=== PATIENT | male | born 1950 | race Caucasian/White ===

== ENCOUNTER 2018-05-24 12:32 | Inpatient (IN) | payer MEDICARE, OTHER ==
[~2018-05-24] VITALS: Ht 180.3 cm; Wt 136.1 kg
--- NOTE | ~2018-05-24 | DS ---
[facility] [address] [place], [place] [address] Draft ADMISSION DATE: 06/08/2018 DISCHARGE DATE: 06/13/2018 FINAL DIAGNOSES: 1. Osteoarthritis right knee, severe. 2. Diabetes mellitus. HISTORY OF PRESENT ILLNESS: The patient a 67-year-old white male, with end-stage osteoarthritis in the right knee. He had reached the point where conservative management no longer gave him any symptomatic relief and he presented for elective total knee arthroplasty. HOSPITAL COURSE: The patient was admitted on June 08, 2018, via Day Surgery. He was taken to the operating room, where he underwent knee replacement with an Attune PS knee. Postoperatively, he has done well. He has been a little slower than average in physical therapy due to his general deconditioning and his BMI. However, he passed his physical therapy protocol at this time and is independently ambulatory with a walker. We are going to discharge him home on Xarelto for DVT prophylaxis and continue to alternate Dilaudid and OxyIR as needed for pain. He can be active as possible. We will arrange for outpatient physical therapy and will have him follow up with us in 6 weeks. MD SUSANA Valenzuela/SHY /[id number] Copies: ~ PATIENT NAME: KAMALJIT CORTEZ DISCHARGE SUMMARY DATE OF : 46 REPORT #: [id number] PHYSICIAN: CORI ROSA MD PCP: ASHER GIBBS DO REPORT IS CONFIDENTIAL AND NOT TO BE RELEASED WITHOUT AUTHORIZATION
--- OUTSIDE RECORDS SUMMARY | ~2018-05-24 | XMS | Clinical Summary ---
Demographics + + + | Address | [address] | | | [place] [address] | + + + | Home Phone | | + + + | Preferred Language | Unknown | + + + | Marital Status | | + + + | Methodist Affiliation | 1073 | + + + | Race | Unknown | + + + | Ethnic Group | Unknown | + + + Author + + + | Author | [facility] | | | and [place] | + + + | Organization | [facility] | | | and [place] | + + + | Address | Unknown | + + + | Phone | Unavailable | + + + Support + + +---------+ + | Name | Relationship | Address | Phone | + + +---------+ + | Irish Smith | ECON | Unknown | | + + +---------+ + Care Team Providers + +------+ + | Care Driver Name | Role | Phone | + +------+ + | Mart Greer DO | PP | | + +------+ + Allergies + + + + + + | Active Allergy | Reactions | Severity | Noted | Comments | | | | | Date | | + + + + + + | Adhesive & Tape | Other (See Comments) | Low | | Blisters | + + + + + + | Bacitracin-Neomycin- | Rash | Low | 06/17/20 | | | Polymyxin | | | 17 | | + + + + + + | Penicillins | Rash | Low | | | + + + + + + Current Medications + + +-------+---------+------+------+-------+ | Prescription | Sig. | Disp. | Refills | Star | End | Statu | | | | | | t | Date | s | | | | | | Date | | | + + +-------+---------+------+------+-------+ | pantoprazole | Take 40 mg by mouth | | | | | Activ | | (PROTONIX) 40 mg | 2 times daily | | | | | e | | tablet | (before meals). | | | | | | + + +-------+---------+------+------+-------+ | traZODone | Take 50 mg by mouth | | | | | Activ | | (DESYREL) 50 mg | nightly. | | | | | e | | tablet | | | | | | | + + +-------+---------+------+------+-------+ | tamsulosin | Take 0.4 mg by mouth | | | | | Activ | | (FLOMAX) 0.4 mg CAPS | daily (after | | | | | e | | | breakfast). | | | | | | + + +-------+---------+------+------+-------+ | | TAKE 1 TABLET BY | | 11 | 08/3 | | Activ | | losartan-hydrochloro | MOUTH ONCE DAILY | | | 0/20 | | e | | thiazide (HYZAAR) | | | | 17 | | | | 100-25 MG per tablet | | | | | | | + + +-------+---------+------+------+-------+ | metFORMIN | Take one tablet | | 12 | 09/1 | | Activ | | (GLUCOPHAGE-XR) 500 | twice daily | | | 0/20 | | e | | mg 24 hr tablet | | | | 17 | | | + + +-------+---------+------+------+-------+ | montelukast | Take one tablet in | | 11 | 08/3 | | Activ | | (SINGULAIR) 10 mg | the evening | | | 0/20 | | e | | tablet | | | | 17 | | | + + +-------+---------+------+------+-------+ | pravastatin | Take one tablet | | 11 | 08/3 | | Activ | | (PRAVACHOL) 20 mg | daily | | | 0/20 | | e | | tablet | | | | 17 | | | + + +-------+---------+------+------+-------+ | acetaminophen | Take 1,000 mg by | | | | | Activ | | (TYLENOL) 500 mg | mouth nightly. | | | | | e | | tablet | | | | | | | + + +-------+---------+------+------+-------+ | loperamide | Take 2-4 mg by mouth | | | | | Activ | | (IMODIUM) 2 mg | as needed for | | | | | e | | capsule | Diarrhea. | | | | | | + + +-------+---------+------+------+-------+ | Multiple | Take 1 tablet by | | | | | Activ | | Vitamins-Minerals | mouth Daily. | | | | | e | | (CENTRUM ULTRA MENS) | | | | | | | | TABS | | | | | | | + + +-------+---------+------+------+-------+ Active Problems + + + | Problem | Noted Date | + + + | Cough | 06/29/2017 | + + + | Gastroesophageal reflux disease | 06/29/2017 | + + + | OBSTRUCTIVE SLEEP APNEA | 11/05/2010 | + + + Immunizations + + + + | Name | Dates Previously Given | Next Due | + + + + | INFLUENZA 63 Y OR >, | 07/22/2017, 07/01/2016, 06/19/2015 | | | TRIVALENT HIGH-DOSE | | | + + + + | PNEUMOCOCCAL | 11/27/2016 | | | CONJUGATE 13-VALENT | | | | (PCV13) | | | + + + + | PNEUMOCOCCAL | 07/29/2015 | | | POLYSACCHARIDE | | | | 23-VALENT (PPSV23) | | | + + + + | TDAP, (ADOL/ADULT) | 06/19/2015 | | + + + + | ZOSTER, 1 DOSE | 05/26/2010 | | | (ADULT) | | | + + + + Family History + + +------+ + | Medical History | Relation | Name | Comments | + + +------+ + | Diabetes | Brother | | | + + +------+ + | Asthma | Father | | | + + +------+ + | Coronary artery | Father | | | | disease | | | | + + +------+ + | Emphysema | Father | | | + + +------+ + | Breast cancer | Mother | | | + + +------+ + | Other (see comment) | Sister | | Diverticulitis | + + +------+ + + +------+ + + | Relation | Name | Status | Comments | + +------+ + + | Brother | | | | + +------+ + + | Father | | | | + +------+ + + | Mother | | | | + +------+ + + | Sister | | | | + +------+ + + Social History + +-------+ +--------+------+ | Tobacco Use | Types | Packs/Day | Years | Date | | | | | Used | | + +-------+ +--------+------+ | Never Smoker | | | | | + +-------+ +--------+------+ + +---+---+---+ | Smokeless Tobacco: | | | | | Never Used | | | | + +---+---+---+ + + | Tobacco Cessation: Counseling Given: No | + + + + +---------+ + | Alcohol Use | Drinks/We | oz/Week | Comments | | | ek | | | + + +---------+ + | Yes | | | Once every 3-4 months | + + +---------+ + + + + | Sex Assigned at | Date Recorded | | | | + + + | Not on file | | + + + Last Filed Vital Signs + + + + | Vital Sign | Reading | Time Taken | + + + + | Blood Pressure | 150/80 | 07/28/2017 1059 PDT | + + + + | Pulse | 72 | 07/28/20171058 PDT | + + + + | Temperature | 37.6 C (99.7 F) | 06/18/20175 PDT | + + + + | Respiratory Rate | 18 | 07/28/20171058 PDT | + + + + | Oxygen Saturation | 93% | 07/28/20171058 PDT | + + + + | Inhaled Oxygen | - | - | | Concentration | | | + + + + | Weight | 145.9 kg (321 lb | 07/28/20171058 PDT | | | 10.4 oz) | | + + + + | Height | 181.6 cm (5' 11.5") | 07/22/2017 0912 PDT | + + + + | Body Mass Index | 44.24 | 07/28/2017 1059 PDT | + + + + Plan of Treatment + + + + + | Health Maintenance | Due Date | Last Done | Comments | + + + + + | Hepatitis C | | | | | Screening | 9 | | | + + + + + | Vaccine: Influenza | | 07/22/2017, 07/01/2016, | | | (#1) | 8 | 06/19/2015 | | + + + + + | Vaccine: | | 06/19/2015 | | | Dtap/Tdap/Td (2 - | 5 | | | | Td) | | | | + + + + + | Colorectal Cancer | | 06/18/2017 | | | Screening | 7 | | | | (Colonoscopy) | | | | + + + + + | Vaccine: | Completed | 11/27/2016, 07/29/2015 | | | Pneumococcal 65+ | | | | | Low/Medium Risk | | | | + + + + + Results Not on filefrom Last 3 Months Insurance + +--------+ +--------+ +---------+ | Payer | Benefi | Subscriber | Type | Phone | Address | | | t Plan | ID | | | | | | / | | | | | | | Group | | | | | + +--------+ +--------+ +---------+ | MEDICARE | MEDICA | [id number] | Medica | [phone] | | | | RE | | re | [phone] | | | | PART A | | | | | | | AND B | | | | | + +--------+ +--------+ +---------+ | MEDICARE SUPPLEMENT | MEDICA | [id number] | Indemn | [phone] | | | OTHER | RE | | ity | [phone] | | | | SUPPLE | | | | | | | MENT | | | | | | | OTHER | | | | | + +--------+ +--------+ +---------+ + +--------+ +--------+ + + | Guarantor Name | Accoun | Relation to | Date | Phone | Billing Address | | | t Type | Patient | of | | | | | | | | | | + +--------+ +--------+ + + | KAMALJIT CORTEZ | Person | Self [birth year] Home: | [address] | | | al/Fam | | 1951 | [phone] | [place] | | | [place] | | [phone] | [phone] | + +--------+ +--------+ + +
[~2018-05-24 12:32] MED LIST: HYDROCODON-ACE1 EA11 PO; KEFLEX500 MG PO; LOSARTAN-HCTZ1 EAC1 PO; MELOXICAM15 MG PO; METFORMIN HCL500 M1 PO; MONTELUKAST SOD10 MG PO; PANTOPRAZOLE SO40 MG PO; PRAVASTATIN SOD20 MG PO; TAMSULOSIN HCL0.4 MG PO; TRAZODONE HCL50 MG PO; VERAPAMIL ER120 M1 PO
[2018-06-01] MEDS ORDERED: GLIPIZIDE10 MG PO (13:12)
[2018-06-01] MEDS ORDERED: JANUVIA50 MG PO (13:12)
[2018-06-08] MEDS ORDERED: DAILY MULTIPLE1 EACH PO (07:18)
[2018-06-08] MEDS ORDERED: ACETAMINOPHEN500 MG PO (07:19)
[2018-06-08] MEDS ORDERED: GLIPIZIDE ER10 MG PO (14:58)
--- NOTE | 2018-06-09 09:23 | OR ---
[facility] [address] [place], [place] [address] Signed DATE OF OPERATION: 06/08/2018 SURGEON: Cori Rosa MD PREOPERATIVE DIAGNOSIS: End-stage osteoarthritis, right knee. POSTOPERATIVE DIAGNOSIS: End-stage osteoarthritis, right knee. PROCEDURES: Right total knee arthroplasty. Using an Attune PS knee. IMPLANTS: Size 8 PS femur, size 8 fixed bearing tibial tray, 5 mm thick size 8 PS poly, and a 38 mm all-poly patellar button. ANESTHESIA: Spinal with sedation. SPECIMENS AND COMPLICATIONS: There were no specimens or complications. TOURNIQUET TIME: About 85 minutes. WHAT WAS DONE: The patient was taken to the operating room. After anesthesia was induced, the right lower extremity was positioned, prepped and draped in a routine sterile fashion. The leg was exsanguinated with an Esmarch bandage. Pneumatic tourniquet about the thigh was inflated to 300 mmHg pressure. A straight anterior approach was made at the knee through skin and subcutaneous tissue. A small medial flap was created. An anteromedial arthrotomy performed. The patella was turned on edge and about 11 mm trimmed off the posterior aspect. We then placed the lollipop for the 38 mm all-poly patella on the back of the cut surface and drilled the holes for the 38 mm all-poly patella. After we snap-fit the trial and remeasured, we had restored the 24 mm height of the patella. The trial was removed and the patella was slipped into the lateral recess. The knee was placed in a semi flexed position. Using the Nextlanding navigation system, we digitized the distal femur and then did a distal femoral resection at neutral varus valgus and about 3 degrees of flexion with removing approximately 11 mm off the more worn i.e. the medial Electronically Signed By: CORI ROSA MD 06/09/18 0923 PATIENT NAME: KAMALJIT CORTEZ OPERATIVE REPORT DATE OF : 46 REPORT #: [id number] PHYSICIAN: CORI ROSA MD PCP: ASHER GIBBS DO REPORT IS CONFIDENTIAL AND NOT TO BE RELEASED WITHOUT AUTHORIZATION [facility] [address] [place], [place] [address] Signed side. The femoral wafers were then removed. We transitioned the Nextlanding navigation system of the proximal tibia and again following the prompts digitized the proximal tibia. We then resected the tibia in neutral varus valgus taking about 4 mm off the medial side in about 3 degrees of posterior slope per the Attune surgical protocol. The tibial wafer run into the medial and lateral meniscus. ACL and PCL were then removed. We checked the extension block and we had a good extension with a stable construct. We then placed the sizer on the distal femur and it sized to a size 8. We secured the 4-in-1 size 8 cutting block on the distal femur in 3 degrees of external rotation. Anterior, posterior, and chamfer cuts were made. We then placed the size 8 notch cutting block on the distal femur and cut out the notch. Lamina spreaders were then placed in the knee and removed the small remnants remaining of the mediolateral meniscus, ACL, and PCL. We then placed the femoral trial on the distal femur. I drilled the lug holes. We placed a size 8 tibial trial base plate on the tibia with a 5 mm poly. Again, we had full extension with excellent stability. We marked the rotational alignment. We then prepared the tibia with a standard reamer and broach. The knee was copiously irrigated and dried. The final components were then cemented into place. Marginal cement was sought and removed. Once the cement had completely cured, we removed the trial 5 mm poly and snap fit the real [address]. Again, we had full extension with good varus valgus balance and flexion extension in mid range. The knee was copiously irrigated and closed in standard fashion. A sterile dressing was applied. The patient was awakened and taken to the recovery room in stable condition. Counts were correct and antibiotic protocols were followed. Cori Rosa MD WFB/MODL /[id number] Copies: ~ Electronically Signed By: CORI ROSA MD 06/09/18 0923 PATIENT NAME: KAMALJIT CORTEZ OPERATIVE REPORT DATE OF : 46 REPORT #: [id number] PHYSICIAN: CORI ROSA MD PCP: ASHER GIBBS DO REPORT IS CONFIDENTIAL AND NOT TO BE RELEASED WITHOUT AUTHORIZATION
[2018-06-13] MEDS ORDERED: XARELTO10 MG PO (13:10)
[2018-06-13] MEDS ORDERED: DILAUDID4 MG PO (13:12)
[2018-06-13] MEDS ORDERED: OXYCODONE HCL5 MG PO (13:22)
== END 2018-06-13 14:15 | disposition home or self-care (01) | DRG 470 ==
LOC: DSVR 06-08 06:55 → MS 06-08 06:55
PROVIDERS: ADMIT Orthopaedic Surgery
PROC: 0SRC0J9 Replacement of Right Knee Joint with Synthetic Substitute, Cemented, Open Approach (ICD-10-PCS; principal; 2018-06-08 08:45)
DX: M17.11 Unilateral primary osteoarthritis, right knee (principal); Z68.41 Body mass index [BMI] 40.0-44.9, adult; I10 Essential (primary) hypertension; K21.9 Gastro-esophageal reflux disease without esophagitis; F32.9 Major depressive disorder, single episode, unspecified; N40.0 Benign prostatic hyperplasia without lower urinary tract symptoms; E11.9 Type 2 diabetes mellitus without complications; Z79.4 Long term (current) use of insulin; G47.33 Obstructive sleep apnea (adult) (pediatric); G47.00 Insomnia, unspecified; E66.01 Morbid (severe) obesity due to excess calories; E78.5 Hyperlipidemia, unspecified; J45.30 Mild persistent asthma, uncomplicated
CPT/HCPCS: 36415; 51702; 51798; 73560; 80048; 85025; 94762; 97110; 97116; 97161; C1713; C1776; G8978; G8979; J0690; J1815; J1885; J2250; J2274; J2300; J2405; J2704; J2765; J3010; J3370; J7120

== ENCOUNTER 2022-03-17 10:50 | Emergency (ER) | payer MEDICARE, OTHER ==
[~2022-03-17] VITALS: Ht 180.3 cm; Wt 152.4 kg
[~2022-03-17 10:50] MED LIST changes: +ACETAMINOPHEN500 MG PO; +DAILY MULTIPLE1 EACH PO; +DILAUDID4 MG PO; +GLIPIZIDE ER10 MG PO; +GLIPIZIDE10 MG PO; +JANUVIA50 MG PO; +OXYCODONE HCL5 MG PO; +XARELTO10 MG PO
--- OUTSIDE RECORDS SUMMARY | 2022-03-17 10:52 | XMS ---
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 Ady has no Care Guidelines for this patient. Carmen VISIT COUNT (12 MO.) 1 [place] TOTAL 1 NOTE: Visits indicate total known visits. ED/UCC VISIT TRACKING (12 MO.) 03/17/2022 10:51 [place] TYPE: Emergency COMPLAINT: - FLU INFUSION INPATIENT VISIT TRACKING (12 MO.) No inpatient visits to display in this time frame [email or web address]
[2022-03-17] MEDS ORDERED: GABAPENTIN100 MG PO (11:06)
[2022-03-17] MEDS ORDERED: OXYBUTYNIN CHLOR5 M1 PO (11:06)
[2022-03-17] MEDS ORDERED: CHLORTHALIDONE25 MG PO (11:06)
[2022-03-17] MEDS ORDERED: LOSARTAN POTAS100 MG PO (11:06)
[2022-03-17] MEDS ORDERED: PIOGLITAZONE HC15 MG PO (11:17)
[2022-03-17] MEDS ORDERED: DULOXETINE HCL60 MG PO (11:17)
[2022-03-17] MEDS ORDERED: FARXIGA10 MG PO (11:17)
== END 2022-03-17 12:30 | disposition home or self-care (01) ==
LOC: ED 10:50
DX: U07.1 COVID-19 (principal); J45.909 Unspecified asthma, uncomplicated; I10 Essential (primary) hypertension; E78.5 Hyperlipidemia, unspecified; E11.9 Type 2 diabetes mellitus without complications; Z88.8 Allergy status to other drugs, medicaments and biological substances; Z91.048 Other nonmedicinal substance allergy status; Z79.899 Other long term (current) drug therapy
CPT/HCPCS: 96374; 99283-25

== ENCOUNTER 2022-06-23 05:35 | Day surgery (SDC) | payer MEDICARE, OTHER ==
[~2022-06-23] VITALS: Ht 180.3 cm; Wt 141.0 kg
[~2022-06-23 05:35] MED LIST changes: +ALLEGRA ALLERG180 MG PO; +ARNUITY ELLIP100 MCG IH; +BENADRYL25 MG PO; +CHILDREN S NS; +CHLORTHALIDONE25 MG PO; +DULOXETINE HCL60 MG PO; +FARXIGA10 MG PO; +GABAPENTIN100 MG PO; +LOSARTAN POTAS100 MG PO; +LOSARTAN-HCTZ1 EAC2 PO; +NOVOLIN 70100 UNIT/1; +OXYBUTYNIN CHLOR5 M1 PO; +PIOGLITAZONE HC15 MG PO; +PROAIR HFA8.5 GM INH; +VENTOLIN HFA18 GM INH; +[UNRECOGNIZED DRUG - OTHER] NS
--- NOTE | 2022-06-23 05:40 | NUR ---
PT AMBULATED IN TO DAY SURGERY WITH LEG SUPPORTS AND CANES. PT DRESSES SELF INTO HOSPITAL GOWN. PT REPORTS 1/10 BACK PAIN THAT IS "MY NORMAL." INTAKE ASSESSMENT DONE. IV STARTED PER PROTOCOL. PT VERBALIZES UNDERSTANDING OF PLAN OF CARE AND STATES HIS QUESTIONS HAVE BEEN ANSWERED. EKG DONE BY RT RAMON, PER ORDER. NO ADDITIONAL NEEDS AT THIS TIME. CALL LIGHT WITHIN REACH. BED RAILS UP.
--- NOTE | 2022-06-23 06:30 | NUR ---
TIFFANIE MARI, TO BEDSIDE TO DISCUSS PLAN OF CARE WITH PT. PT VERBALIZES UNDERSTANDING AND STATES HIS QUESTIONS HAVE BEEN ANSWERED. NO ADDITIONAL NEEDS AT THIS TIME. CALL LIGHT WITHIN REACH. BED RAILS UP.
--- NOTE | 2022-06-23 07:26 | NUR ---
CIRCULAR SKIN RASH NOTED TO PTS RIGHT VELA WITH INTAKE ASSESSMENT. DR. SANDS AND ASHLEY, PHOTOGRAPH DEVELOPER, UPDATED REGARDING RASH, NO NEW ORDERS AT THIS TIME. DR SANDS TO BEDSIDE TO REVIEW PLAN OF CARE WITH PT. PT VERBALIZES UNDERSTANDING AND STATES HIS QUESTIONS HAVE BEEN ANSWERED. ASHLEY PHOTOGRAPH DEVELOPER, TO BEDSIDE TO TAKE PT TO OR. REPORT GIVEN TO ASHLEY. NO ADDITIONAL NEEDS, PT TO OR.
--- NOTE | 2022-06-23 09:42 | NUR ---
06/23/22 0942 Marjan Shi 0927 PT ARRIVED IN PACU NON RESPONSIVE TO NOXIOUS STIMULI WITH OPA IN PLACE. 0930 BLOOD SUGAR 180. ANESTHESIA AWARE. 0940 NO CHANGE IN PT STATUS FROM ARRIVAL.
--- NOTE | 2022-06-23 10:04 | NUR ---
PT ARRIVED FROM PACU. PT ORIENTED TO ALL BUT DROWSY. PT DENIES PAIN OR NAUSEA. STATING "I DONT FEEL MUCH OF ANYTHING RIGHT NOW." PT TOLERATING ROOM AIR WIHT OXGYEN SATURATIONS 96-99%. SMALL AMOUNT OF RED DRANAGE NOTED ON ABD PAD OVER PENIS. INCISION C/D/I. SCD'S IN PLACE. NO ADDITIONAL NEEDS AT THIS TIME. PT ENCOURAGED TO REST. CALL LIGHT WITHIN REACH. BED RAILS UP.
[2022-06-23] MEDS ORDERED: OXYCODONE HCL5 MG PO (10:20)
[2022-06-23] MEDS ORDERED: CEPHALEXIN500 M1 PO (10:21)
--- NOTE | 2022-06-23 10:30 | NUR ---
PT CALL LIGHT ON. PT REPORTS HE NEEDS TO VOID. PT UP TO SIT ON EDGE OF BED. PT REPORS MILD DIZZINESS. URINAL PROVIDED. PT ABLE TO VOID 50ML, CONCENTRATED URINE. 1 PERSON ASSIST BACK TO BED. PT CONTINUES TO DENY PAIN AND NAUSEA. NO ADDITIONAL REQUESTS OR COMPLAINTS. CALL LIGHT WITHIN REACH. BED RAILS UP.
--- NOTE | 2022-06-23 11:00 | NUR ---
PT CALL LIGHT ON. PT REPORTS NEED TO VOID. PT UP TO STAND AND IS ABLE TO VOID 600ML IN URINAL. AMRIO CARE DONE. DEPENDS CHANGED. ABD PAD REMAINS IN PLACE WITH SMALL AMOUNT OF RED DRAINAGE NOTED ON MARIO PAD. PT CONTINUES TO DENY PAIN AND NAUSEA. PT TOLERATING PO FOOD AND FLUIDS. PT REPORS HE IS READY TO GO HOME. 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
--- NOTE | 2022-06-23 11:16 | NUR ---
PT READY FOR DISCHAGE. PT DRESSES SELF WITH 1 PERSON ASSIT FOR SHOES. PT CONTINUES TO DENY PAIN AND NAUSEA. DISCHRAGE INSTRUCTIONS REVIEWED WITH PT. PT VERBALIZES UNDERSTANDING OF INSTRUCTIONS, MEDICATIONS, AND FOLLOW UP. PT TRANSFERS SELF TO WHEELCHAIR. IV DC'D PER PROTOCOL, TIP INTACT, GAUZE AND COBAN APPLIED. PT WHEELED FROM DAY SURGERY TO MEET FRIEND, RORY AT FRONT OF HOSPITAL.
--- NOTE | 2022-06-23 18:12 | OR ---
[facility] [address] [place] [place] [address] Signed DATE OF OPERATION: 06/23/2022 SURGEON: Jodi Sands MD PREOPERATIVE DIAGNOSIS: Phimosis. POSTOPERATIVE DIAGNOSIS: Phimosis. PROCEDURE: Elective circumcision. ANESTHESIA: General and 20 mL of 0.25% Marcaine plain. ESTIMATED BLOOD LOSS: 15 mL. COMPLICATIONS: None. SPECIMENS: Foreskin sent to Pathology for evaluation. COMPLICATIONS: None. INDICATIONS FOR PROCEDURE: Mr. Cortez is a very pleasant 71-year-old gentleman, who recently underwent diagnostic cystoscopy for an unrelated complaint. At the time of his physical exam, he was noted to have uncomplicated phimosis. At the time of his examination, he requested elective circumcision. After discussion of the risks and benefits of the procedure, the patient elected to proceed and presents today to undergo the aforementioned procedure. FINDINGS: 1. 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 The testicles are descended bilaterally and are without any intratesticular masses. With a good deal of manipulation, we are able to retract the foreskin. The glans penis appears normal and has no adhesions or any other abnormalities present. Electronically Signed By: JODI SANDS MD 06/23/221811 PATIENT NAME: KAMALJIT CORTEZ OPERATIVE REPORT DATE OF : 46 REPORT #: [id number] PHYSICIAN: JODI SANDS MD PCP: ASHER GIBBS DO REPORT IS CONFIDENTIAL AND NOT TO BE RELEASED WITHOUT AUTHORIZATION [facility] [address] [place], [place] [address] Signed 2. The patient's foreskin was excised in the routine fashion using a 15 blade with needlepoint electrocautery. The frenular attachment remains intact. The foreskin will be sent to Pathology for evaluation. DESCRIPTION OF PROCEDURE: After informed consent was obtained, the patient was taken back to the operating room. He was transferred from the [facility] to the operating room table, where general anesthesia was induced. He was placed in the supine position. His genitalia were prepped and draped in a standard sterile fashion. The foreskin was dilated using hemostats and we were able to retract the foreskin and properly prepped the glans penis with Betadine. I then placed a 1-0 silk stay suture into the glans penis to help with manipulation of the phallus. I used a marker to shelley both the outer foreskin and the inner portion of the foreskin. With the foreskin completely protracted, I made an incision using a 15 blade circumferentially in the distal prepuce. This was dissected down very gently using electrocautery. I then retracted the foreskin and made an appropriate shelley about 1 cm inferior to the coronal sulcus. I also gave additional attention and created a v flap on the ventral surface of the penis. This was also incised circumferentially using a 15 blade and then dissected down using a needlepoint electrocautery. Once both ends of the foreskin were delineated, I then used a pair of hemostats to little the proximal portion of the foreskin, but this was completely excised using needle point electrocautery. The foreskin was then removed from the operative table and sent to Pathology for evaluation. The penis was then irrigated with sterile saline solution and hemostasis was achieved and maintained using the bipolar electrocautery. I then reapproximated the edges of the remaining portion of the foreskin. I used 3-0 Vicryl at the 12, 3, 6, and 9 o'clock positions. A simple interrupted suture was placed in this area and used as a stay suture. The remainder of the foreskin was then reapproximated using combination of horizontal mattress suture placement along with a running suture near the ventral portion of the phallus. The entire incision was reapproximated without issue again using 3-0 Vicryl. Again, we again thoroughly irrigated the incision and look for any additional areas of hemorrhage. Bacitracin was then applied circumferentially to the subcoronal incision. The area was then cleaned and dried and an ABD dressing was placed along with a scrotal support. The procedure was then terminated. The patient tolerated the procedure well without any complication. He will now be transferred to the Postanesthesia Care Unit in stable condition. DISPOSITION: I discussed the details of today's procedure with the patient's daughter, Irish, and answered all of her questions. He will be sent home today with Keflex 500 mg p.o. q.6 hours p.r.n. pain, dispense #28, along with oxycodone 5 mg one tablet p.o. q.6 hours p.r.n. pain, dispense #30. He will be scheduled return to clinic on July 28 at 04:45 p.m. for his first postoperative evaluation. Electronically Signed By: JODI SANDS MD 06/23/221811 PATIENT NAME: KAMALJIT CORTEZ OPERATIVE REPORT DATE OF : 46 REPORT #: [id number] PHYSICIAN: JODI SANDS MD PCP: ASHER GIBBS DO REPORT IS CONFIDENTIAL AND NOT TO BE RELEASED WITHOUT AUTHORIZATION [address] [address] Signed MD JENNIFER Srivastava/MODL /[id number] Copies: ~ Electronically Signed By: JODI SANDS MD 06/23/221811 PATIENT NAME: DIEGOKAMALJIT LIZ OPERATIVE REPORT DATE OF : 46 REPORT #: [id number] PHYSICIAN: JODI SANDS MD PCP: ASHER GIBBS DO REPORT IS CONFIDENTIAL AND NOT TO BE RELEASED WITHOUT AUTHORIZATION
--- NOTE | 2022-06-23 20:22 | EKG ---
[facility] [address] [facility] [place] [address] Signed Normal sinus rhythm Normal ECG When compared with ECG of 19-JUN-2022 10:47, Sinus rhythm has replaced Junctional rhythm Criteria for Inferior infarct are no longer present T wave inversion no longer evident in Inferior leads Confirmed by KATHLEEN WHITE MD ([id number]) on 06/23/2022 8:22:46 PM Electronically Signed By: KATHLEEN WHITE MD 06/23/222021 PATIENT NAME: KAMALJIT CORTEZ Electrocardiogram DATE OF : 46 PHYSICIAN: KATHLEEN WHITE MD REPORT #: [id number] REPORT IS CONFIDENTIAL AND NOT TO BE RELEASED WITHOUT AUTHORIZATION
== END 2022-06-23 11:20 | disposition home or self-care (01) ==
LOC: DS 05:35
PROVIDERS: ATTEND Urology
PROC: 0VTTXZZ Resection of Prepuce, External Approach (ICD-10-PCS; principal; 2022-06-23 07:30)
DX: N47.1 Phimosis (principal); E11.42 Type 2 diabetes mellitus with diabetic polyneuropathy; Z79.4 Long term (current) use of insulin; E78.00 Pure hypercholesterolemia, unspecified; K21.9 Gastro-esophageal reflux disease without esophagitis; J45.909 Unspecified asthma, uncomplicated; F32.A Depression, unspecified; N40.0 Benign prostatic hyperplasia without lower urinary tract symptoms; N32.81 Overactive bladder
CPT/HCPCS: 00400; 88304; J0330; J0690; J1100; J1885; J2250; J2405; J2704; J2765; J3010; J7121

== ENCOUNTER 2023-02-19 17:50 | Emergency (ER) | payer MEDICARE, OTHER ==
[~2023-02-19] VITALS: Ht 180.3 cm; Wt 163.3 kg
[~2023-02-19 17:50] MED LIST changes: +CEPHALEXIN500 M1 PO
--- OUTSIDE RECORDS SUMMARY | 2023-02-19 17:52 | XMS ---
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 Ady has no Care Guidelines for this patient. Carmen VISIT COUNT (12 MO.) 2 [place] TOTAL 2 NOTE: Visits indicate total known visits. ED/UCC VISIT TRACKING (12 MO.) 02/19/2023 17:50 [place] [place] TYPE: Emergency COMPLAINT: - CHEST PAIN 03/17/2022 10:51 [place] [facility] [place] TYPE: Emergency COMPLAINT: - FLU INFUSION DIAGNOSES: - Allergy status to other drugs, medicaments and biological substances - Cough, unspecified - COVID-19 - Essential (primary) hypertension - Hyperlipidemia, unspecified - Other shelter (current) drug therapy - Other nonmedicinal substance allergy status - Type 2 diabetes mellitus without complications - Unspecified asthma, uncomplicated INPATIENT VISIT TRACKING (12 MO.) No inpatient visits to display in this time frame [id number]
[2023-02-19] MEDS ORDERED: FUROSEMIDE40 MG PO (18:09)
[2023-02-19] MEDS ORDERED: KLOR-CON 1010 MEQ PO (18:09)
[2023-02-19] MEDS ORDERED: AMLODIPINE-OLM1 EAC2 PO (18:10)
[2023-02-19] MEDS ORDERED: OXYBUTYNIN CHLOR5 M1 PO (18:10)
[2023-02-19] MEDS ORDERED: TAMSULOSIN HCL0.4 MG PO (18:10)
[2023-02-19] MEDS ORDERED: SILDENAFIL CIT100 MG PO (18:11)
[2023-02-19] MEDS ORDERED: TRELEGY ELLIPT1 EAC1 INH (18:13)
--- NOTE | 2023-02-19 21:23 | EKG ---
[facility] [address] [facility] [place] [address] Signed Normal sinus rhythm Normal ECG When compared with ECG of 23-JUN-2022 05:48, No significant change was found Confirmed by KATHLEEN WHITE MD ([id number]) on 02/19/2023 9:23:26 PM Electronically Signed By: KATHLEEN WHITE MD 02/19/232122 PATIENT NAME: KAMALJIT CORTEZ Electrocardiogram DATE OF : 46 PHYSICIAN: KATHLEEN WHITE MD REPORT #: [id number] REPORT IS CONFIDENTIAL AND NOT TO BE RELEASED WITHOUT AUTHORIZATION
--- NOTE | 2023-02-19 21:25 | EKG ---
[facility] [address] [facility] [place], [place] [address] Signed Normal sinus rhythm Nonspecific ST abnormality Abnormal ECG When compared with ECG of 19-FEB-2023 17:52, (Unconfirmed) No significant change was found Confirmed by KATHLEEN WHITE MD ([id number] on 02/19/2023 9:25:19 PM Electronically Signed By: KATHLEEN WHITE MD 02/19/232124 PATIENT NAME: KAMALJIT CORTEZ Electrocardiogram DATE OF : 46 PHYSICIAN: KATHLEEN WHITE MD REPORT #: [id number] REPORT IS CONFIDENTIAL AND NOT TO BE RELEASED WITHOUT AUTHORIZATION
[2023-02-19 23:31] VITALS: BP 159/70
== END 2023-02-19 23:12 | disposition short-term general hospital (02) ==
LOC: ED 17:50
DX: I20.0 Unstable angina (principal); R77.8 Other specified abnormalities of plasma proteins; I10 Essential (primary) hypertension; J45.909 Unspecified asthma, uncomplicated; E78.5 Hyperlipidemia, unspecified; E11.9 Type 2 diabetes mellitus without complications; Z88.8 Allergy status to other drugs, medicaments and biological substances; Z91.048 Other nonmedicinal substance allergy status; Z79.899 Other long term (current) drug therapy; Z79.4 Long term (current) use of insulin
CPT/HCPCS: 36415; 71045; 80053; 83735; 84484; 85025; 85379; 85610; 85730; 93005; 93010; 96374; 96375; 99285-25; J1644

== ENCOUNTER 2024-02-04 14:29 | Emergency (ER) | payer MEDICARE, OTHER ==
[~2024-02-04] VITALS: Ht 180.3 cm; Wt 169.5 kg
[~2024-02-04 14:29] MED LIST changes: +AMLODIPINE-OLM1 EAC2 PO; +FUROSEMIDE40 MG PO; +KLOR-CON 1010 MEQ PO; +SILDENAFIL CIT100 MG PO; +TRELEGY ELLIPT1 EAC1 INH
--- OUTSIDE RECORDS SUMMARY | 2024-02-04 14:32 | XMS ---
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 [facility] has no Care Guidelines for this patient. [facility] VISIT COUNT (12 MO.) 2 [place] [place] TOTAL 2 NOTE: Visits indicate total known visits. 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 - Other snf (current) drug therapy - Other nonmedicinal substance allergy status - Other specified abnormalities of plasma proteins - Type 2 diabetes mellitus without complications - Unspecified asthma, uncomplicated - Unstable angina INPATIENT VISIT TRACKING (12 MO.) 02/20/2023 00:31 [place] [facility] SALGUERO (Daquan Butt) TYPE: Intensive Care DIAGNOSES: - penitentiary (current) use of insulin - Non-ST elevation (NSTEMI) myocardial infarction - Obstructive sleep apnea (adult) (pediatric) - Type 2 diabetes mellitus with diabetic neuropathy, unspecified - Unstable angina [email or web address]
[2024-02-04] MEDS ORDERED: HUMULIN R500 UNIT/2 SQ (14:47)
[2024-02-04 14:58] LABS: BASOPHILS 0.8 % (0-2); EOSINOPHILS 1.9 % (0-6); HEMATOCRIT 31.6 % (35.0-50.0); HEMOGLOBIN 9.9 g/dL (12.0-18.0); LYMPHOCYTES 21.3 % (24-44); MCH 24.7 (27-36); MCHC 31.2 g/dl (30-36); MCV 79.4 fl (81-99); MONOCYTES 8.2 % (0-12); NEUTROPHILS 67.8 % (39-80); PLATELET COUNT 283 K/uL (140-440); RBC 3.98 M/ul (4.3-5.7)
[2024-02-04 15:20] LABS: ALBUMIN 2.8 g/dL (3.4-5.0); ALBUMIN/GLOBULIN RATIO 0.72 (1.1-2.4); ANION GAP 13.6 (7-21); BILIRUBIN, TOTAL 0.4 ng/dL (0.2-1.0); BUN/CREATININE RATIO 14.5 (6.0-28.6); CALCIUM 8.1 mg/dL (8.5-10.1); CREATININE, SERUM 1.31 mg/dL (0.70-1.30); POTASSIUM 4.6 mmol/L (3.5-5.1); PROTEIN, TOTAL 6.7 g/dL (6.4-8.2)
[2024-02-04] MEDS ORDERED: FUROSEMIDE 100 MG/10 ML VIAL IV ONE (16:00)
[2024-02-04] MEDS ORDERED: ASPIRIN 81 MG CHEW PO ONE (18:15)
[2024-02-04] MEDS ORDERED: HEPARIN SOD,PORK IN 0.45% NACL 500 ML IV SCH (20:30)
[2024-02-04] MEDS ORDERED: HEParin SOD (PORCINE) 5,000 UNIT/ML VIAL IV ONE (20:30)
[2024-02-04 21:41] VITALS: BP 161/79
--- NOTE | 2024-02-04 22:45 | EKG ---
[facility] [address] [facility] [place] [address] Signed Normal sinus rhythm Nonspecific ST abnormality Abnormal ECG When compared with ECG of 19-FEB-2023 20:11, No significant change was found Confirmed by MURIEL ROSA MD ([id number] on 02/04/2024 10:45:40 PM Electronically Signed By: MURIEL ROSA 02/04/24 2245 PATIENT NAME: KAMALJIT CORTEZ Electrocardiogram DATE OF : 46 PHYSICIAN: MURIEL ROSA REPORT #: [id number] REPORT IS CONFIDENTIAL AND NOT TO BE RELEASED WITHOUT AUTHORIZATION
== END 2024-02-04 21:55 | disposition short-term general hospital (02) ==
LOC: ED 14:29
PROVIDERS: Emergency Medicine
DX: I24.9 Acute ischemic heart disease, unspecified (principal); R60.9 Edema, unspecified; J45.909 Unspecified asthma, uncomplicated; I10 Essential (primary) hypertension; E78.5 Hyperlipidemia, unspecified; E11.9 Type 2 diabetes mellitus without complications; Z88.8 Allergy status to other drugs, medicaments and biological substances; Z91.048 Other nonmedicinal substance allergy status; Z79.899 Other long term (current) drug therapy; Z79.4 Long term (current) use of insulin
CPT/HCPCS: 36415; 71045; 80053; 83735; 83880; 84484; 85025; 93005; 93010; 96374; 96375; 99285-25; A9270; J1644; J1940